=== PATIENT | male | born 1970 | race Caucasian/White ===

== ENCOUNTER 2017-01-05 09:31 | Emergency (ER) | payer OTHER, BC ==
--- NOTE | 2017-01-05 09:46 | EDM.PDOC ---
ED HPI GENERAL MEDICAL PROBLEM - General Chief Complaint: General Stated Complaint: HEMRROIDS Time Seen by Provider: 01/05/17 09:35 - History of Present Illness INITIAL COMMENTS - FREE TEXT/NARRATIVE: HISTORY AND PHYSICAL: History of present illness: Patient 46-year-old white male with past Medical history significant for hemorrhoids and hypercholesteremia who presents with sternal hemorrhoidal pain and swelling is noted over last several days unrelieved by Preparation H Review of systems: As per history of present illness and below otherwise all systems reviewed and negative. Past medical history: As per history of present illness and as reviewed below otherwise noncontributory. Surgical history: As per history of present illness and as reviewed below otherwise noncontributory. Social history: No reported history of drug or alcohol abuse. Family history: As per history of present illness and as reviewed below otherwise noncontributory. Physical exam: HEENT: Atraumatic, normocephalic, pupils reactive, negative for conjunctival pallor or scleral icterus, mucous membranes moist, throat clear, neck supple, nontender, trachea midline. Lungs: Clear to auscultation, breath sounds equal bilaterally, chest nontender. Heart: S1S2, regular, negative for clicks, rubs, or JVD. Abdomen: Soft, nondistended, nontender. Negative for masses or hepatosplenomegaly. Negative for costovertebral tenderness. Pelvis: Stable nontender. Genitourinary: Deferred. Rectal: Approximately 2 cm external hemorrhoid with tenderness noted no active bleeding Extremities: Atraumatic, negative for cords or calf pain. Neurovascular unremarkable. Neuro: Awake, alert, oriented. Cranial nerves II through XII unremarkable. Cerebellum unremarkable. Motor and sensory unremarkable throughout. Exam nonfocal. Diagnostics: None Therapeutics: None Impression: #1 hemorrhoid Definitive disposition and diagnosis as appropriate pending reevaluation and review of above. Rectal Pain Score (Numeric/FACES): 6 - Related Data Allergies Allergy/AdvReac Type Severity Reaction Status Date / Time Penicillins Allergy UNKNOWN Verified 01/05/17 09:37 Home Meds: Home Meds Citalopram [Celexa] 10 mg PO DAILY 01/05/17 [History] Simvastatin [Zocor] 5 mg PO DAILY 01/05/17 [History] ED ROS GENERAL - Review of Systems Review Of Systems: ROS reveals no pertinent complaints other than HPI. ED EXAM, GENERAL - Physical Exam Exam: See Below (See dictation) Course - Vital Signs Last Recorded V/S: Last Vital Signs Temp 37.7 C 01/05/17 09:37 Pulse 87 01/05/17 09:37 Resp 18 01/05/17 09:37 BP 135/76 01/05/17 09:37 Pulse Ox 96 01/05/17 09:37 Departure - Departure Time of Disposition: 09:45 Disposition: Home, Self-Care 01 Condition: good Clinical Impression: Hemorrhoids Forms: ED Department Discharge Additional Instructions: The following information is given to patients seen in the emergency department who are being discharged to home. This information is to outline your options for follow-up care. We provide all patients seen in our emergency department with a follow-up referral. The need for follow-up, as well as the timing and circumstances, are variable depending upon the specifics of your emergency department visit. If you don't have a primary care physician on staff, we will provide you with a referral. We always advise you to contact your personal physician following an emergency department visit to inform them of the circumstance of the visit and for follow-up with them and/or the need for any referrals to a consulting specialist. The emergency department will also refer you to a specialist when appropriate. This referral assures that you have the opportunity for followup care with a specialist. All of these measure are taken in an effort to provide you with optimal care, which includes your followup. Under all circumstances we always encourage you to contact your private physician who remains a resource for coordinating your care. When calling for followup care, please make the office aware that this follow-up is from your recent emergency room visit. If for any reason you are refused follow-up, please contact the [facility] emergency department at and asked to speak to the emergency department charge nurse. [facility] [address] [place] [address], [address] [place] [address] Anusol suppository/appointment hydrocodone Colace sitz baths as directed followup primary medical doctor/general surgery as discussed return as needed as discussed
== END 2017-01-05 09:55 | disposition home or self-care (01) ==
LOC: MW.ED 09:31
CPT/HCPCS: 99282; 99283

== ENCOUNTER 2025-01-24 08:29 | Day surgery (SDC) | payer OTHER, BC ==
[~2025-01-24 08:29] MED LIST: Lactated Ringers 1,000 ML IV SCH
[2025-01-24] MEDS ORDERED: Lidocaine 2% 5 ML SDV ONE (08:55)
[2025-01-24] MEDS ORDERED: Propofol 200 MG/20 ML SDV ONE ×2 (08:55→09:58)
[2025-01-24] MEDS ORDERED: Lactated Ringers 1,000 ML IV SCH (10:15)
[2025-01-24 10:48] VITALS: PULSE 60
[2025-01-24 11:37] VITALS: BP 133/81
== END 2025-01-24 11:08 | disposition home or self-care (01) ==
LOC: MW.SDS 08:29
PROVIDERS: ATTEND Surgery
DX: Z12.11 Encounter for screening for malignant neoplasm of colon (principal); R19.5 Other fecal abnormalities; D12.4 Benign neoplasm of descending colon; K62.1 Rectal polyp; K57.30 Diverticulosis of large intestine without perforation or abscess without bleeding; I10 Essential (primary) hypertension; E11.9 Type 2 diabetes mellitus without complications; E78.00 Pure hypercholesterolemia, unspecified; F41.9 Anxiety disorder, unspecified; G47.33 Obstructive sleep apnea (adult) (pediatric); Z87.891 Personal history of nicotine dependence; Z79.82 Long term (current) use of aspirin; Z79.899 Other long term (current) drug therapy; Z88.0 Allergy status to penicillin; Z88.8 Allergy status to other drugs, medicaments and biological substances
CPT/HCPCS: 45380; J2003; J2704; 00811